=== PATIENT | female | born 1960 | race Caucasian/White ===

== ENCOUNTER 2018-08-09 13:58 | Emergency (ER) | payer MEDICARE, MEDICAID ==
[2018-08-09 15:06] LABS: Clarity Clear (Clear); Glucose, Urine (Dipstick) Negative (Negative); Leukocyte Negative (Negative); Nitrite Negative (Negative); Protein, Urine (Dipstick) 30 mg/dL (Neg-Trace); Specific Gravity, Urine 1.024 (1.002-1.036)
[2018-08-09 15:07] LABS: Bilirubin Negative (Negative); Blood, Urine Negative (Negative)
[2018-08-09 15:09] LABS: RBC/HPF None Seen HPF (0-3); Transitional Epithelial NONE SEEN HPF (0-3); WBC/HPF None Seen HPF (0-3)
[2018-08-09 15:10] LABS: Bacteria/HPF None Seen HPF (None Seen); Crystals/HPF None Seen HPF (Negative); Hyaline Casts/LPF NONE SEEN LPF (0-3 Hyaline); Other Casts/LPF None Seen LPF (0-3 Hyaline); Oval Fat Bodies/HPF None Seen HPF (None Seen); Renal Epithelial None Seen HPF (0-3); Sperm/HPF None Seen HPF (None Seen); Squamous Epithelial 0-3 HPF (0-3); Trichomonas/HPF None Seen HPF (None Seen); Yeast-All Forms None Seen HPF (None Seen)
[2018-08-09 15:18] LABS: ALT (SGPT) 17 U/L (8-55); AST (SGOT) 35 U/L (5-34); Albumin 3.7 g/dL (3.5-5.0); Alkaline Phosphatase 69 U/L (40-150); Anion Gap 13 mmol/L (10-20); BUN (Urea Nitrogen) 6 mg/dL (9.8-20.1); Bilirubin, Total 0.8 mg/dL (0.2-1.2); Calc. Creatinine Clearance 0 mL/min (70-130); Carbon Dioxide 24 mmol/L (22-29); Chloride 78 mmol/L (98-107); Estimated GFR-MDRD Greater than 90; Globulin 2.7 g/dL (2.4-3.5); Glucose 106 mg/dL (70-105); Potassium 4.1 mmol/L (3.5-5.1); Protein, Total 6.4 g/dL (6.0-8.3)
[2018-08-09 15:19] LABS: Acetaminophen Less than 6.0 mcg/mL (10.0-30.0); Alcohol Less than 10 mg/dL (Less than 10); Salicylate Less than 8.0 mg/dL (15.0-30.0)
[2018-08-09 15:21] LABS: Amphetamine Not Detected (NotDetected); Barbiturates Screen Not Detected (NotDetected); Benzodiazepine Screen Detected (NotDetected); Cocaine Metabolite Screen Not Detected (NotDetected); Medtox Control Line Valid? VALID (VALID); Methadone Not Detected (NotDetected); Methamphetamine Not Detected (NotDetected); Opiate Screen Not Detected (NotDetected); Oxycodone Screen Not Detected (NotDetected); Phencyclidine (PCP) Not Detected (NotDetected); THC/Cannabinoid Screen Not Detected (NotDetected); Tricyclic Screen Not Detected (NotDetected)
[2018-08-09] MEDS ORDERED: methylPREDNISolone Sod Succ/PF 125 MG/2 ML VIAL ONE (15:22)
[2018-08-09 15:25] LABS: Troponin I Less than 0.010 ng/mL (< 0.028)
[2018-08-09 15:29] LABS: #Basophils 0.1 thou/uL (0.0-0.2); #Lymphocytes 0.5 thou/uL (1.20-3.40); #Monocytes 1.1 thou/uL (0.11-0.59); #Neutrophils 5.7 thou/uL (1.40-6.50); %Basophils 1.1 % (0.0-1.0); %Eosinophils 0.4 % (0.0-10.0); %Lymphocytes 6.4 % (21.0-51.0); %Monocytes 14.5 % (0.0-10.0); %Neutrophils 77.6 % (42.0-75.0); Hemoglobin 12.9 g/dL (12.0-16.0); Mean Corpuscular HGB CONC 37.8 g/dL (32.0-36.0); Mean Corpuscular Hemoglobin 33.8 pg (27.0-31.0); Mean Corpuscular Volume 89.6 fL (78.0-98.0); Mean Platelet Volume 6.4 fL (7.4-10.4); Platelet Count 237 thou/uL (130-400); RBC Distribution Width 10.4 % (11.5-14.5); Red Blood Cell (RBC) Count 3.82 mill/uL (4.20-5.40); White Blood Cell (WBC) Count 7.4 thou/uL (4.8-10.8)
[2018-08-09 15:41] LABS: Sodium 111 mmol/L (136-145)
[2018-08-09 15:42] LABS: MDiff Complete? YES
--- NOTE | 2018-08-09 17:59 | CT ---
CT BRAIN WITHOUT CONTRAST: Date: 08-09-18 No prior scans were available for comparison. Motion artifact is present on some of the upper slices. FINDINGS: The ventricles are normal in size and show no shift. Some basal ganglia calcifications are present bi laterally. There was no sign of any stroke, mass, or edema. No bleeding was seen. The calvarium appea red intact. IMPRESSION: No acute intracranial findings. POS: HOME
--- NOTE | 2018-08-09 18:01 | RAD ---
PORTABLE CHEST: Date: 08-09-18 Time: 1453 hours. FINDINGS: The heart is normal in size. There is diffuse prominence of the interstitial markings. I do not have an old film to compare with. This could be edema and congestion or it could be terminal clerk fibrosis. It is difficult to be certain given the normal heart size. No effusions are seen. No lobar consolidatio ns were present. IMPRESSION: Diffuse prominence of interstitial markings, particularly in the upper half of the lungs. See discuss ion above and correlate with clinical presentation. POS: HOME
== END 2018-08-09 16:10 | disposition short-term general hospital (02) ==
LOC: BURERS 13:58
DX: R41.82 Altered mental status, unspecified (principal); E87.1 Hypo-osmolality and hyponatremia; E03.9 Hypothyroidism, unspecified; Z79.899 Other long term (current) drug therapy; Z79.891 Long term (current) use of opiate analgesic
CPT/HCPCS: 51701; 70450; 71045; 80053; 80306; 80307; 81003; 81015; 84443; 84484; 85025; 87040; 93005; 94760; 96361; 96374; A4353; J2930